=== PATIENT | male | born 1975 | race Hispanic/Latino ===

== ENCOUNTER 2018-03-16 17:28 | Emergency (ER) | payer OTHER ==
[~2018-03-16] VITALS: Ht 182.9 cm; Wt 90.0 kg
[2018-03-16] MEDS ORDERED: PREDNISONE10 MG PO (18:25)
[2018-03-16 21:13] VITALS: BP 162/94
== END 2018-03-16 21:35 | disposition home or self-care (01) | DRG 918 ==
LOC: ED 17:28
DX: T63.461A Toxic effect of venom of wasps, accidental (unintentional), initial encounter (principal); T78.2XXA Anaphylactic shock, unspecified, initial encounter; Y92.73 Farm field as the place of occurrence of the external cause; Y93.89 Activity, other specified; Y99.0 Civilian activity done for income or pay